=== PATIENT | male | born 1980 | race Caucasian/White ===

== ENCOUNTER 2019-02-02 17:50 | Emergency (ER) | payer MEDICAID, OTHER ==
[~2019-02-02] VITALS: Ht 187 cm; Wt 143.0 kg
[2019-02-02] MEDS ORDERED: NS IV 1000 ML 1,000 ML IV SCH ×2 (18:16→19:25)
[2019-02-02 18:35] LABS: BASOPHILS # (AUTO) 0.1 10^3/uL (0.0-0.1); BASOPHILS % (AUTO) 1 % (0-10); EOSINOPHILS # (AUTO) 0.1 10^3/uL (0.0-0.3); EOSINOPHILS % (AUTO) 2 % (0-10); HEMATOCRIT 42 % (40-54); HEMOGLOBIN 15.8 G/DL (13.3-17.7); LYMPHOCYTES # (AUTO) 2.2 X 10^3 (1.0-4.0); LYMPHOCYTES % (AUTO) 32 % (12-44); MEAN CORPUSCULAR HEMOGLOBIN 33 PG (25-34); MEAN CORPUSCULAR HGB CONC 37 G/DL (32-36); MEAN CORPUSCULAR VOLUME 88 FL (80-99); MEAN PLATELET VOLUME 11.5 FL (7.4-10.4); MONOCYTES # (AUTO) 0.5 X 10^3 (0.0-1.0); MONOCYTES % (AUTO) 7 % (0-12); NEUTROPHILS # (AUTO) 3.9 X 10^3 (1.8-7.8); NEUTROPHILS % (AUTO) 58 % (42-75); PLATELET COUNT 235 10^3/uL (130-400); WHITE BLOOD COUNT 6.8 10^3/uL (4.3-11.0)
[2019-02-02] MEDS ORDERED: ONDANSETRON 4 MG/2 ML (SDV) Z0FRAN IVP ONE (18:45)
[2019-02-02 18:51] LABS: ALANINE AMINOTRANSFERASE 60 U/L (0-55); ALBUMIN 4.4 GM/DL (3.2-4.5); ALKALINE PHOSPHATASE 82 U/L (40-136); AMYLASE 26 U/L (25-125); BILIRUBIN,TOTAL 0.8 MG/DL (0.1-1.0); BUN/CREATININE RATIO 14; CALCIUM 9.5 MG/DL (8.5-10.1); CARBON DIOXIDE 21 MMOL/L (21-32); CHLORIDE 102 MMOL/L (98-107); CREATININE SERUM 1.08 MG/DL (0.60-1.30); GFR ESTIMATED > 60; GLUCOSE 225 MG/DL (70-105); LIPASE 40 U/L (8-78); MAGNESIUM 1.9 MG/DL (1.6-2.4); POTASSIUM 4.5 MMOL/L (3.6-5.0); SODIUM 139 MMOL/L (135-145)
[2019-02-02 19:10] LABS: TSH (THYROID ANALYZER) 1.46 UIU/ML (0.35-4.94)
[2019-02-02 19:25] LABS: ABG BASE EXCESS 1.5 MMOL/L (-2.5-2.5); ABG OXYGEN SATURATION 97 % (94-100); ABG PCO2 41 MMHG (35-45); ABG PH 7.41 (7.37-7.43); ABG PO2 78 MMHG (79-93)
[2019-02-02 19:28] LABS: ALLENS TEST positive; INSPIRED O2 NO; PATIENT TEMP 37; VENTILATOR NO
[2019-02-02 19:35] LABS: BILIRUBIN,URINE NEGATIVE (NEGATIVE); CLARITY,URINE CLEAR; COLOR,URINE YELLOW; GLUCOSE, URINE (UA) 2+ (NEGATIVE); KETONES,URINE 1+ (NEGATIVE); LEUKOCYTE ESTERASE ,URINE NEGATIVE (NEGATIVE); NITRITE,URINE NEGATIVE (NEGATIVE); PH,URINE 5 (5-9); PROTEIN,URINE 3+ (NEGATIVE); UROBILINOGEN,URINE NORMAL (NORMAL)
[2019-02-02 19:42] LABS: BACTERIA,URINE NEGATIVE /HPF; SQUAMOUS EPITHELIAL CELL,UR RARE /HPF
[2019-02-02 19:52] LABS: AMPHETAMINE SCREEN, URINE NEGATIVE (NEGATIVE); BARBITURATE SCREEN URINE NEGATIVE (NEGATIVE); BENZODIAZEPINES SCREEN URINE NEGATIVE (NEGATIVE); CANNABINOID SCREEN, URINE NEGATIVE (NEGATIVE); COCAINE SCREEN URINE NEGATIVE (NEGATIVE); METHADONE STAT NEGATIVE (NEGATIVE); METHAMPHETAMINE SCREEN URINE S NEGATIVE (NEGATIVE); OPIATE SCREEN URINE NEGATIVE (NEGATIVE); OXYCODONE STAT NEGATIVE (NEGATIVE); PROPOXYPHENE STAT NEGATIVE (NEGATIVE); TRICYCLIC ANTIDEPRESSANTS SCRE NEGATIVE (NEGATIVE)
--- NOTE | 2019-02-02 19:54 | ED General ---
General Chief Complaint: Glucose Problems Stated Complaint: BLOOD SUGAR 500'S X 1 WK Nursing Triage Note: Pt to [facility] with C/O hyperglycemia/nausea/fatigue x 1 week. Pt states he is type II diabetic and his blood sugars have been 400-500 in the past week. Pt denies any urinary changes. Nursing Sepsis Screen: No Definite Risk Allergies and Home Medications Allergies Coded Allergies: No Known Drug Allergies (Unverified , 02/02/19) Past [id number] Hx Patient Social History Alcohol Use: Denies Use Recreational Drug Use: No Smoking Status: Never a Smoker 2nd Hand Smoke Exposure: No Recent Foreign Travel: No Contact w/Someone Who Travel: No Recent Infectious Disease Expo: No Recent Hopitalizations: No Physical Abuse: No Sexual Abuse: No Mistreated: No Fear: No Seasonal Allergies Seasonal Allergies: No Past Medical History Surgeries: Yes (screw in left ankle ) Orthopedic Respiratory: No Cardiac: No Neurological: No Genitourinary: No Gastrointestinal: No Musculoskeletal: No Endocrine: Yes Diabetes, Non-Insulin dep HEENT: No Cancer: No Psychosocial: No Integumentary: No Blood Disorders: No Physical Exam Vital Signs Vital Signs - First Documented 02/02/19 18:08 Temp 37.0 Pulse 87 Resp 18 B/P (MAP) 150/106 (121) Pulse Ox 98 O2 Delivery Room Air Capillary Refill : Less Than 3 Seconds Height, Weight, BMI Height: '" Weight: lbs. oz. kg; 40.00 BMI Method: Focused Exam Lactate Level 02/02/19 18:25: Lactic Acid Level 1.84 Lactic Acid Level Laboratory Tests Test 02/02/19 18:25 Lactic Acid Level 1.84 MMOL/L (0.50-2.00) Progress/Results/Core Measures Suspected Sepsis Recent Fever Within 48 Hours: No Infection Criteria Present: None New/Unexplained Altered Menta: No Sepsis Screen: No Definite Risk SIRS Temperature: Pulse: 87 Respiratory Rate: 18 Laboratory Tests 02/02/19 18:25: White Blood Count 6.8 Blood Pressure 150 /106 Mean: 121 02/02/19 18:25: Lactic Acid Level 1.84 Laboratory Tests 02/02/19 18:25: Creatinine 1.08, Platelet Count 235, Total Bilirubin 0.8 Results/Orders Lab Results Laboratory Tests Test 02/02/19 18:24 02/02/19 18:25 02/02/19 19:14 02/02/19 19:30 Range/Units Glucometer 230 H 70-110 MG/DL White Blood Count 6.8 4.3-11.0 10^3/uL Red Blood Count 4.79 4.35-5.85 10^6/uL Hemoglobin 15.8 13.3-17.7 G/DL Hematocrit 42 40-54 % Mean Corpuscular Volume 88 80-99 FL Mean Corpuscular Hemoglobin 33 25-34 PG Mean Corpuscular Hemoglobin Concent 37 H 32-36 G/DL Red Cell Distribution Width 13.0 10.0-14.5 % Platelet Count 235 130-400 10^3/uL Mean Platelet Volume 11.5 H 7.4-10.4 FL Neutrophils (%) (Auto) 58 42-75 % Lymphocytes (%) (Auto) 32 12-44 % Monocytes (%) (Auto) 7 0-12 % Eosinophils (%) (Auto) 2 0-10 % Basophils (%) (Auto) 1 0-10 % Neutrophils # (Auto) 3.9 1.8-7.8 X 10^3 Lymphocytes # (Auto) 2.2 1.0-4.0 X 10^3 Monocytes # (Auto) 0.5 0.0-1.0 X 10^3 Eosinophils # (Auto) 0.1 0.0-0.3 10^3/uL Basophils # (Auto) 0.1 0.0-0.1 10^3/uL Sodium Level 139 135-145 MMOL/L Potassium Level 4.5 3.6-5.0 MMOL/L Chloride Level 102 98-107 MMOL/L Carbon Dioxide Level 21 21-32 MMOL/L Anion Gap 16 H 5-14 MMOL/L Blood Urea Nitrogen 15 7-18 MG/DL Creatinine 1.08 0.60-1.30 MG/DL Estimat Glomerular Filtration Rate > 60 BUN/Creatinine Ratio 14 Glucose Level 225 H 70-105 MG/DL Lactic Acid Level 1.84 0.50-2.00 MMOL/L Calcium Level 9.5 8.5-10.1 MG/DL Corrected Calcium 9.2 8.5-10.1 MG/DL Magnesium Level 1.9 1.6-2.4 MG/DL Total Bilirubin 0.8 0.1-1.0 MG/DL Aspartate Amino Transf (AST/SGOT) 42 H 5-34 U/L Alanine Aminotransferase (ALT/SGPT) 60 H 0-55 U/L Alkaline Phosphatase 82 40-136 U/L Total Protein 9.0 H 6.4-8.2 GM/DL Albumin 4.4 3.2-4.5 GM/DL Amylase Level 26 25-125 U/L Lipase 40 8-78 U/L TSH [place] Testing 1.46 0.35-4.94 UIU/ML Serum Alcohol < 10 <10 MG/DL Blood Gas Puncture Site right brachial Blood Gas Patient Temperature 37 Arterial Blood pH 7.41 7.37-7.43 Arterial Blood Partial Pressure CO2 41 35-45 MMHG Arterial Blood Partial Pressure O2 78 L 79-93 MMHG Arterial Blood HCO3 26 23-27 MMOL/L Arterial Blood Total CO2 27.0 21.0-31.0 MMOL/L Arterial Blood Oxygen Saturation 97 94-100 % Arterial Blood Base Excess 1.5 -2.5-2.5 MMOL/L Jaden Test positive Blood Gas Ventilator Setting NO Blood Gas Inspired Oxygen NO Urine Color YELLOW Urine Clarity CLEAR Urine pH 5 5-9 Urine Specific Reagan 1.025 H 1.016-1.022 Urine Protein 3+ H NEGATIVE Urine Glucose (UA) 2+ H NEGATIVE Urine Ketones 1+ H NEGATIVE Urine Nitrite NEGATIVE NEGATIVE Urine Bilirubin NEGATIVE NEGATIVE Urine Urobilinogen NORMAL NORMAL MG/DL Urine Leukocyte Esterase NEGATIVE NEGATIVE Urine RBC (Auto) NEGATIVE NEGATIVE Urine RBC NONE /HPF Urine WBC NONE /HPF Urine Squamous Epithelial Cells RARE /HPF Urine Crystals NONE /LPF Urine Bacteria NEGATIVE /HPF Urine Casts NONE /LPF Urine Mucus NEGATIVE /LPF Urine Culture Indicated NO Urine Opiates Screen NEGATIVE NEGATIVE Urine Oxycodone Screen NEGATIVE NEGATIVE Urine Methadone Screen NEGATIVE NEGATIVE Urine Propoxyphene Screen NEGATIVE NEGATIVE Urine Barbiturates Screen NEGATIVE NEGATIVE Ur Tricyclic Antidepressants Screen NEGATIVE NEGATIVE Urine Phencyclidine Screen NEGATIVE NEGATIVE Urine Amphetamines Screen NEGATIVE NEGATIVE Urine Methamphetamines Screen NEGATIVE NEGATIVE Urine Benzodiazepines Screen NEGATIVE NEGATIVE Urine Cocaine Screen NEGATIVE NEGATIVE Urine Cannabinoids Screen NEGATIVE NEGATIVE My Orders Orders - SARA DONIS DO Accucheck Stat ONCE (02/02/19 18:09) Monitor-Rhythm Ecg Trace Only (02/02/19 18:09) Alcohol (02/02/19 18:09) Amylase (02/02/19 18:09) Arterial Blood Gas (02/02/19 19:14) Cbc With Automated Diff (02/02/19 18:09) Comprehensive Metabolic Panel (02/02/19 18:09) Drug Screen Stat (Urine) (02/02/19 18:09) Lactic Acid Analyzer (02/02/19 18:09) Lipase (02/02/19 18:09) Magnesium (02/02/19 18:09) Thyroid Analyzer (02/02/19 18:09) Ua Culture If Indicated (02/02/19 18:09) Ed Iv/Invasive Line Start (02/02/19 18:09) Ed Iv/Invasive Line Start (02/02/19 18:16) Ns Iv 1000 Ml (Sodium Chloride 0.9%) (02/02/19 18:16) Ondansetron Injection (Zofran Injectio (02/02/19 18:45) Ed Iv/Invasive Line Start (02/02/19 19:25) Ns Iv 1000 Ml (Sodium Chloride 0.9%) (02/02/19 19:25) Accucheck Stat ONCE (02/02/19 19:52) Medications Given in ED Current Medications Medications Dose Ordered Sig/Swetha Route Start Time Stop Time Status Last Admin Dose Admin Ondansetron HCl 8 mg ONCE ONCE IVP 02/02/19 18:45 02/02/19 18:46 DC 02/02/19 18:38 8 MG Vital Signs/I&O 02/02/19 18:08 Temp 37.0 Pulse 87 Resp 18 B/P (MAP) 150/106 (121) Pulse Ox 98 O2 Delivery Room Air Capillary Refill : Less Than 3 Seconds Blood Pressure Mean: 121 Point of Care Testing Finger Stick Blood Glucose: 230 Blood Glucose Action Taken: Dr Donis notified Departure Impression Primary Impression: Diabetes mellitus, insulin dependent (IDDM), uncontrolled Disposition: 01 HOME, SELF-CARE Condition: Stable Departure-Patient Inst. Referrals: NO,LOCAL PHYSICIAN (PCP/Family) Primary Care Physician Patient Instructions: Diabetes Type 2 (DC), Diabetes and Diet Add. Discharge Instructions: CHECK YOUR BLOOD SUGAR AT LEAST 3 TIMES A DAY BEFORE EACH MEAL TAKE YOUR INSULIN PRESCRIBED FOLLOW UP WITH YOUR DR NEXT WEEK FOR FURTHER CARE All discharge instructions reviewed with patient and/or family. Voiced understanding. SARA DONIS DO Feb 02, 2019 19:54
[2019-02-02 20:17] VITALS: BP 152/91
== END 2019-02-02 20:17 | disposition home or self-care (01) ==
LOC: ER 17:52
DX: E11.9 Type 2 diabetes mellitus without complications (principal)
CPT/HCPCS: 36415; 36600; 80053; 80306; 80320; 81000; 82150; 82805; 82962; 83605; 83690; 83735; 84443; 85025; 93041